=== PATIENT | female | born 1980 | race Caucasian/White ===

== ENCOUNTER 2017-01-11 14:07 | Emergency (ER) | payer OTHER ==
[2017-01-11 14:19] VITALS: BP 119/63
--- NOTE | 2017-01-11 14:50 | UC ---
Abdominal Pain Female HPI - HPI Summary HPI Summary: 2 DAYS OF N/V AND WATERY DIARRHEA. SYMPTOMS WORSE WHEN SHE TRIES TO TAKE PO. IS VERY FATIGUED AND HAS A HOFFMAN. NO FEVER. HAS A H/O IBS - UNABLE TO TOLERATE DAIRY BUT HAS NOT EATEN ANY TRIGGER FOODS. NO RECENT ANTIBIOTICS, TRAVEL OR NEW EXPOSURES. - History of Current Complaint Chief Complaint: UCAbdominalPain Stated Complaint: ABDOMINAL COMPLAINT Time Seen by Provider: 01/11/17 14:34 Hx Obtained From: Patient Hx Last Menstrual Period: 12/16/16 Onset/Duration: Gradual Onset, Lasting Days, Still Present Severity Initially: Moderate Severity Currently: Moderate Pain Intensity: 9 Pain Scale Used: 0-10 Numeric Location: Diffuse Radiates: No Character: Cramping Aggravating Factor(s): Food Alleviating Factor(s): Nothing Associated Signs and Symptoms: Positive: Decreased Appetite, Nausea, Vomiting, Diarrhea. Negative: Fever, Constipation, Blood in Stool, Urinary Symptoms, Vaginal Discharge Allergies/Adverse Reactions: Allergies Allergy/AdvReac Type Severity Reaction Status Date / Time Codeine Allergy Difficulty Verified 01/11/17 14:19 Breathing Morphine Allergy Difficulty Verified 01/11/17 14:19 Breathing Penicillin G Allergy Rash Verified 01/11/17 14:19 PMH/Surg Hx/FS Hx/Imm Hx GI/ History: Gastroesophageal Reflux Other GI/ History: IBS - Surgical History Surgical History: Yes Surgery Procedure, Year, and Place: josiah- 02/2000. tubal ligation 07/2003. teeth removed - Family History Known Family History: Positive: Hypertension - Social History Alcohol Use: Rare Substance Use Type: None Smoking Status (MU): Heavy Every Day Tobacco Smoker Amount Used/How Often: 1/2 ppd Review of Systems Constitutional: Fatigue Respiratory: Negative Cardiovascular: Negative Gastrointestinal: Abdominal Pain, Vomiting, Diarrhea, Nausea Genitourinary: Negative All Other Systems Reviewed And Are Negative: Yes Physical Exam Triage Information Reviewed: Yes Appearance: Well-Nourished, Pain Distress - MILD, Obese Vital Signs: Initial Vital Signs Temp 99.0 F 01/11/17 14:16 Pulse 81 01/11/17 14:16 Resp 20 01/11/17 14:16 BP 119/63 01/11/17 14:16 Pulse Ox 99 01/11/17 14:16 Vital Signs Reviewed: Yes Eyes: Positive: Conjunctiva Clear ENT: Positive: Hearing grossly normal Neck: Positive: Supple, Nontender, No Lymphadenopathy Respiratory Exam: Normal Cardiovascular Exam: Normal Abdomen Description: Positive: Soft, Other: - MILD DIFFUSE TENDERNESS. Negative : CVA Tenderness (R), CVA Tenderness (L), Distended, Guarding Bowel Sounds: Positive: Present Musculoskeletal: Positive: No Edema Neurological: Positive: Alert Psychological: Positive: Age Appropriate Behavior Skin: Negative: rashes Abd Pain Female Course/Dx - Course Course Of Treatment: PT DECLINES IV HYDRATION. GIVE ZOFRAN, PO HYDRATE, REST. NOTE FOR WORK. STOOL SPECIMEN IF NOT IMPROVING . F/U PCP IF NEEDED. - Differential Dx/Diagnosis Provider Diagnoses: ACUTE GASTROENTERITIS Discharge - Discharge Plan Condition: Stable Disposition: HOME Prescriptions: Ondansetron ODT TAB* [Zofran Odt TAB*] 4 mg PO Q6H PRN #20 tab.odt PRN Reason: Nausea/Vomiting Patient Education Materials: Gastroenteritis (ED) Forms: *Work Release Referrals: Kurt Davila MD [Primary Care Provider] - If Needed Additional Instructions: ENSURE ADEQUATE HYDRATION. CLEAR LIQUIDS, BLAND DIET. AVOID CAFFEINE, DAIRY, GREASY, SPICY FOODS. ONCE YOU ARE TOLERATING CLEAR LIQUIDS YOU CAN ADVANCE TO SIMPLE, BLAND FOODS. IF YOUR SYMPTOMS DO NOT START TO IMPROVE OVER THE NEXT 3-5 DAYS BRING A STOOL SPECIMEN IN FOR TESTING.
[2017-01-11] MEDS ORDERED: Ondansetron ODT TAB* 4 MG PO ONE (14:54)
== END 2017-01-11 15:10 | disposition home or self-care (01) ==
LOC: UCEAST 14:07
DX: K52.9 Noninfective gastroenteritis and colitis, unspecified (principal); K21.9 Gastro-esophageal reflux disease without esophagitis; K58.9 Irritable bowel syndrome, unspecified
CPT/HCPCS: 99212; A9270-GY; G0463

== ENCOUNTER 2017-04-21 16:45 | Emergency (ER) | payer OTHER ==
[2017-04-21 16:54] VITALS: BP 156/86
--- NOTE | 2017-04-21 17:03 | UC ---
Abdominal Pain Female HPI - HPI Summary HPI Summary: 37 YEAR OLD FEMALE PRESENTS WITH SEVERE VAGINAL BLEEDING. I WILL SEND HER TO THE ER FOR A TRANSVAGINAL US. - History of Current Complaint Chief Complaint: UCGeneralIllness Stated Complaint: CRAMPS Time Seen by Provider: 04/21/17 16:58 Hx Obtained From: Patient Hx Last Menstrual Period: 04/17/17 Onset/Duration: Sudden Onset Severity Initially: Moderate Severity Currently: Moderate Pain Scale Used: 0-10 Numeric - 5 Allergies/Adverse Reactions: Allergies Allergy/AdvReac Type Severity Reaction Status Date / Time Codeine Allergy Difficulty Verified 04/21/17 16:50 Breathing Morphine Allergy Difficulty Verified 04/21/17 16:50 Breathing Penicillin G Allergy Rash Verified 04/21/17 16:50 PMH/Surg Hx/FS Hx/Imm Hx Previously Healthy: Yes - Surgical History Surgical History: Yes Surgery Procedure, Year, and Place: josiah- 02/2000. tubal ligation 07/2003. teeth removed - Family History Known Family History: Positive: Hypertension - Social History Alcohol Use: Rare Substance Use Type: None Smoking Status (MU): Heavy Every Day Tobacco Smoker Amount Used/How Often: 1/2 ppd Review of Systems Constitutional: Negative Skin: Negative Eyes: Negative ENT: Negative Respiratory: Negative Cardiovascular: Negative Gastrointestinal: Negative Genitourinary: Abnormal Bleeding Motor: Negative Neurovascular: Negative Musculoskeletal: Negative Neurological: Negative Psychological: Negative All Other Systems Reviewed And Are Negative: Yes Physical Exam Triage Information Reviewed: Yes Vital Signs: Initial Vital Signs Temp 36.6 C 04/21/17 16:51 Pulse 80 04/21/17 16:51 Resp 20 04/21/17 16:51 BP 156/86 04/21/17 16:51 Pulse Ox 100 04/21/17 16:51 Eye Exam: Normal ENT Exam: Normal Dental Exam: Normal Neck exam: Normal Neck: Positive: 1 Respiratory Exam: Normal Cardiovascular Exam: Normal Abdominal Exam: Normal Musculoskeletal Exam: Normal Neurological Exam: Normal Psychological Exam: Normal Skin Exam: Normal Abd Pain Female Course/Dx - Differential Dx/Diagnosis Provider Diagnoses: VAGINAL BLEEDING Discharge - Discharge Plan Condition: Stable Disposition: HOME Patient Education Materials: Dysfunctional Uterine Bleeding (ED) Referrals: Kurt Davila MD [Primary Care Provider] - Additional Instructions: PATIENT SUGGESTED TO GO TO ER FOR SEVERE VAGINAL BLEEDING.
== END 2017-04-21 17:20 | disposition home or self-care (01) ==
LOC: UCEAST 16:45
DX: N93.9 Abnormal uterine and vaginal bleeding, unspecified (principal); Z88.5 Allergy status to narcotic agent; Z88.0 Allergy status to penicillin; F17.210 Nicotine dependence, cigarettes, uncomplicated
CPT/HCPCS: 99211; G0463

== ENCOUNTER 2017-04-21 18:50 | Emergency (ER) | payer OTHER ==
[2017-04-21] MEDS ORDERED: NS 0.9% 1000 ML* 1,000 ML IV ONE (19:38)
[2017-04-21] MEDS ORDERED: Ondansetron INJ* 2 MG/ML VIAL IV ONE (19:38)
[2017-04-21] MEDS ORDERED: Ketorolac INJ* 30 MG/ML 1 ML VIAL IV ONE (19:38)
[2017-04-21 20:31] LABS: Urine Bacteria 1+ (Absent); Urine Bilirubin Negative (Negative); Urine Glucose Negative (Negative); Urine Nitrite Negative (Negative)
[2017-04-21] MEDS ORDERED: Ibuprofen TAB* 800 MG PO ONE (21:47)
[2017-04-21] MEDS ORDERED: Acetaminophen TAB* 325 MG PO ONE (21:47)
[2017-04-21] MEDS ORDERED: Nitrofurantoin Macrocrystals* 100 MG CAP PO ONE (21:48)
--- NOTE | 2017-04-21 21:54 | ED ---
Lilia Panda Rebecca, scribed for Jerrica Ko MD on 04/21/17 at 2142 . Abdominal Pain/Female - HPI Summary HPI Summary: Pt is a 37 y/o F referred from [facility] who presents to ED c/o R-sided abdominal pain. Pain began 4 days ago and has been intermittent since onset. Pain is currently moderate, ranked 5/10 and characterized as cramping, discrete to the R side of the abdomen without any radiation. Has been taking 800 mg Ibuprofen which has resolved sx until today, at 1415 when she took 600 mg Ibuprofen and it did not change the pain. Sx aggravated by nothing, alleviated by Ibuprofen until today. Additionally c/o urinary frequency suspected to be secondary to caffeine. Denies vomiting, dysuria and back pain. No PMHx UTIs. PMHx IBS and PSHx cholecystectomy. - History of Current Complaint Chief Complaint: EDAbdPain Stated Complaint: RT SIDE ABD PAIN Time Seen by Provider: 04/21/17 21:27 Hx Obtained From: Patient Hx Last Menstrual Period: 04/17/17 Onset/Duration: Lasting Days - 4 days, Still Present Timing: Intermittent Episode Lasting Severity Currently: Moderate Pain Intensity: 5 Pain Scale Used: 0-10 Numeric Location: Other - R-sided Radiates: No Character: Cramping Aggravating Factor(s): Nothing Alleviating Factor(s): Medications - Ibuprofen Associated Signs and Symptoms: Positive: Urinary Symptoms - Urinary frequency. Negative: Back Pain, Vomiting Allergies/Adverse Reactions: Allergies Allergy/AdvReac Type Severity Reaction Status Date / Time Codeine Allergy Difficulty Verified 04/21/17 16:50 Breathing Morphine Allergy Difficulty Verified 04/21/17 16:50 Breathing Penicillin G Allergy Rash Verified 04/21/17 16:50 PMH/Surg Hx/FS Hx/Imm Hx Endocrine/Hematology History: Denies: Hx Diabetes, Hx Thyroid Disease Cardiovascular History: Denies: Hx Hypertension Respiratory History: Reports: Hx Sleep Apnea - evaluation for 10/2013 Denies: Hx Asthma, Hx Chronic Obstructive Pulmonary Disease (COPD) GI History: Reports: Hx Gastroesophageal Reflux Disease - meds, Hx Irritable Bowel Denies: Hx Ulcer Musculoskeletal History: Reports: Hx Back Problems - low back pain, Hx Orthopedic Injury - (right) shoulder pain w/lifting arm, Other Musculoskeletal History - (right) lower leg w/rash & itching - Surgical History Surgery Procedure, Year, and Place: josiah- 02/2000. tubal ligation 07/2003. teeth removed Infectious Disease History: No Infectious Disease History: Denies: Hx Clostridium Difficile, Hx Hepatitis, Hx Human Immunodeficiency Virus (HIV), Hx of Known/Suspected MRSA, Hx Shingles, Hx Tuberculosis, Hx Known/ Suspected VRE, Hx Known/Suspected VRSA, History Other Infectious Disease, Traveled Outside the [place] in Last 30 Days - Family History Known Family History: Positive: Hypertension, Diabetes - father - Social History Alcohol Use: Rare Substance Use Type: Reports: None Smoking Status (MU): Heavy Every Day Tobacco Smoker Amount Used/How Often: 1/2 ppd Review of Systems Positive: Abdominal Pain - R-sided abdominal pain. Negative: Vomiting Positive: frequency - Urinary frequency. Negative: dysuria Positive: Other - NEGATIVE: back pain All Other Systems Reviewed And Are Negative: Yes Physical Exam - Summary Physical Exam Summary: General: Well appearing, no pain distress Skin: Warm, Skin Color Reflects Adequate Perfusion, Dry Eyes: EOMI, ROSEMARIE ENT: Pharynx normal, TMs normal Neck: Supple, nontender Respiratory: CTA, breath sounds present, no rhonchi, no wheezes, no rales Cardiovascular: RRR, no murmur, no rub, no gallop Abdomen: Soft, nontender, Non-distended, no guarding, no rebound Bowel: Present Musculoskeletal: MARTINA, No edema, No costovertebral angle tenderness Neuro: Sensory/motor intact, A&Ox3, CN intact 2-12 Psych: Affect/mood appropriate Triage Information Reviewed: Yes Vital Signs On Initial Exam: Initial Vitals Temp Pulse Resp BP Pulse Ox 97.8 F 69 14 106/48 97 04/21/17 19:25 04/21/17 19:25 04/21/17 19:25 04/21/17 19:25 04/21/17 19:25 Vital Signs Reviewed: Yes Diagnostics - Vital Signs Vital Signs Temp Pulse Resp BP Pulse Ox 04/21/17 19:25 97.8 F 69 14 106/48 97 - Laboratory Lab Results: Lab Results 04/21/17 Range/Units 20:10 Urine Color Tresa Urine Appearance Cloudy Urine pH 5.0 (5-9) Ur Specific [place] 1.018 (1.010-1.030) Urine Protein 2+(100 mg/dl) H (Negative) Urine Ketones Negative (Negative) Urine Blood 3+ H (Negative) Urine Nitrate Negative (Negative) Urine Bilirubin Negative (Negative) Urine Urobilinogen Negative (Negative) Ur Leukocyte Esterase 1+ H (Negative) Urine WBC (Auto) 2+(11-20/hpf) H (Absent) Urine RBC (Auto) 3+(>10/hpf) H (Absent) Ur Squamous Epith Cells Present H (Absent) Urine Bacteria 1+ H (Absent) Urine Glucose Negative (Negative) Lab Statement: Any lab studies that have been ordered have been reviewed, and results considered in the medical decision making process. Abdominal Pain Fem Course/Dx - Course Course Of Treatment: very pleasant female who presents with rlq pain but no tenderness what so ever on exam and no back or cva tenderness with normal vital signs. Pt was sent from urgent care for evaluation, her urine shows a uti and she will be treated as such. She has never had a uti before but has noticed increased frequency. Pt was offered labs and IV but is very needle phobic and would like to avoid if possible, we discussed that this was totally ok but if her symptoms worsened she needed to see her physician for followup or return - Diagnoses Provider Diagnoses: UTI (urinary tract infection) Discharge - Discharge Plan Condition: Stable Disposition: HOME Prescriptions: Nitrofurantoin Monohyd Macro [Macrobid] 100 mg PO BID #14 cap Patient Education Materials: Urinary Tract Infection in Women (ED) Forms: *Work Release Referrals: Kurt Davila MD [Primary Care Provider] - 3 Days The documentation as recorded by the Lilia underwood Rebecca accurately reflects the service I personally performed and the decisions made by me, Jerrica Ko MD.
[2017-04-21 22:57] VITALS: BP 149/84
== END 2017-04-21 22:35 | disposition home or self-care (01) ==
LOC: ED 18:50
DX: N39.0 Urinary tract infection, site not specified (principal); R10.9 Unspecified abdominal pain; F17.210 Nicotine dependence, cigarettes, uncomplicated
CPT/HCPCS: 81003; 81015; 87086; 96374; 96375; 99283; A9270-GY; J1885; J2405

== ENCOUNTER 2017-07-04 17:24 | Emergency (ER) | payer OTHER ==
[2017-07-04 17:45] VITALS: BP 141/73
--- NOTE | 2017-07-04 19:11 | UC ---
Nausea/Vomiting/Diarrhea HPI - HPI Summary HPI Summary: Pt presents with 4 day history of vomiting, nausea, and abdominal cramping. She tells me that 4 days ago she started with abdominal cramping, nausea, and vomited 3 or 4 times that day. Soon after she developed loose stools and diarrhea. She was able to drink, but did not want to eat. Since that time she has vomited 2-4 times daily and still has diarrhea 3-4 times a day. Yesterday she only vomited once, but was still afraid to try to eat. Today she has not vomited at all and her diarrhea is slowing. She does have some generalized abdominal cramping, but no specific pain. She is no longer nauseous. She denies fever, chills, SOB, chest pain, cough, headache, dizziness, numbness, or tingling. She went to work today without difficulties and says she only came in today to get a doctor's note to return to work at her other job for tomorrow. - History of Current Complaint Chief Complaint: UCAbdominalPain Stated Complaint: NAUSEA, ABD CRAMP, DIARRHEA Time Seen by Provider: 07/04/17 19:11 Hx Obtained From: Patient Hx Last Menstrual Period: 04/17/17 Onset/Duration: Gradual Onset Severity Initially: Moderate Severity Currently: Mild Pain Intensity: 3 Pain Scale Used: 0-10 Numeric Location: Diffuse - Allergies/Home Medications Allergies/Adverse Reactions: Allergies Allergy/AdvReac Type Severity Reaction Status Date / Time Codeine Allergy Difficulty Verified 04/21/17 16:50 Breathing Morphine Allergy Difficulty Verified 04/21/17 16:50 Breathing Penicillin G Allergy Rash Verified 04/21/17 16:50 Home Medications: Home Medications Escitalopram Oxalate [Lexapro 10 mg] 10 mg PO DAILY 07/04/17 [History Confirmed 07/04/17] PMH/Surg Hx/FS Hx/Imm Hx GI/ History: Gastroesophageal Reflux - Surgical History Surgical History: Yes Surgery Procedure, Year, and Place: josiah- 02/2000. tubal ligation 07/2003. teeth removed - Family History Known Family History: Positive: Hypertension, Diabetes - father - Social History Occupation: Employed Full-time Lives: With Family Alcohol Use: Rare Substance Use Type: None Smoking Status (MU): Heavy Every Day Tobacco Smoker Type: Cigarettes Amount Used/How Often: 1/2 ppd Review of Systems Constitutional: Negative Skin: Negative Respiratory: Negative Cardiovascular: Negative Gastrointestinal: Vomiting, Diarrhea, Nausea, Other - Abdominal cramping Genitourinary: Negative Neurovascular: Negative Musculoskeletal: Negative Neurological: Negative Psychological: Negative All Other Systems Reviewed And Are Negative: Yes Physical Exam Triage Information Reviewed: Yes Appearance: Well-Appearing, Well-Nourished, Obese Vital Signs: Initial Vital Signs Temp 98.1 F 07/04/17 17:39 Pulse 95 07/04/17 17:39 Resp 18 07/04/17 17:39 BP 141/73 07/04/17 17:39 Pulse Ox 99 07/04/17 17:39 Vital Signs Reviewed: Yes ENT: Positive: Normal ENT inspection, Hearing grossly normal, Pharynx normal, TMs normal Neck: Positive: Supple, Nontender, No Lymphadenopathy Respiratory: Positive: Chest non-tender, Lungs clear, Normal breath sounds, No respiratory distress, No accessory muscle use Cardiovascular: Positive: RRR, No Murmur, Pulses Normal Abdomen Description: Positive: Nontender, No Organomegaly, Soft. Negative: CVA Tenderness (R), CVA Tenderness (L), Distended, Guarding, McBurney's Point Tenderness, Peritoneal Signs Bowel Sounds: Positive: Present Neurological: Positive: Alert. Negative: Fatigued Psychological: Positive: Age Appropriate Behavior Skin: Negative: rashes, significant lesion(s) Naus/Vom/Diarrhea Course/Dx - Course Course Of Treatment: Suspect viral gastroenteritis. Pt appears to be recovering quite well and is able to tolerate crackers, toast, and liquids. She is no longer vomiting or having nausea. Advised to slowely advance diet as tolerated. 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 Advised that if her symptoms return or if she develops a fever, to go to the ED. - Differential Dx/Diagnosis Differential Diagnoses - Female: Appendicitis, Bowel Obstruction, Diverticulitis , Irritable Bowel Syndrome, Gastroenteritis (Viral) Provider Diagnoses: Viral gastroenteritis Condition At Discharge: Stable Discharge - Discharge Plan Condition: Stable Disposition: HOME Patient Education Materials: Gastroenteritis (ED) Forms: *Work Release Referrals: Drew Patten DO [Primary Care Provider] - Additional Instructions: If you develop a fever, SOB, chest pain, new or worsening symptoms - please go to the ED. Your blood pressure was high at todays visit. Please see your primary provider within 4 weeks for recheck and re-evaluation. 1) Slowly advance diet as tolerated with bananas, rice, applesauce, and toast.
== END 2017-07-04 19:30 | disposition home or self-care (01) ==
LOC: UCEAST 17:24
DX: A08.4 Viral intestinal infection, unspecified (principal); F17.210 Nicotine dependence, cigarettes, uncomplicated; Z88.5 Allergy status to narcotic agent; Z88.0 Allergy status to penicillin
CPT/HCPCS: 99211; G0463

== ENCOUNTER 2017-11-16 23:20 | Emergency (ER) | payer OTHER ==
[2017-11-16 23:50] LABS: Urine Appearance Cloudy; Urine Blood 3+ (Negative); Urine Ketones Negative (Negative); Urine Protein 2+(100 mg/dL) (Negative); Urine Specific Gravity 1.028 (1.010-1.030); Urine Urobilinogen Negative (Negative)
[2017-11-16 23:55] LABS: Urine Color Red
[2017-11-17] MEDS ORDERED: Ibuprofen TAB* 600 MG PO ONE (00:45)
[2017-11-17] MEDS ORDERED: Nitrofurantoin Macrocrystals* 100 MG CAP PO ONE (02:00)
[2017-11-17] MEDS ORDERED: oxyCODONE/Acetamin 5/325 MG* TAB ONE (02:06)
[2017-11-17 02:30] VITALS: BP 121/56
--- NOTE | 2017-11-17 03:56 | ED ---
Leonard Panda Gabriel, scribed for Shimon Erickson MD on 11/17/17 at 0048 . GI/ HPI - HPI Summary HPI Summary: This patient is a 37 year old F presenting to [facility] accompanied by her partner with a chief complaint of a suspected UTI that began yesterday. The patient rates the pain 5/10 in severity. Patient reports right sided flank pain. Patient denies dysuria, back pain, and increased frequency. She is currently menstruating; she is not because her tubes are tied. She states these symptoms feel similar to her last UTI. - History of Current Complaint Chief Complaint: EDUrogenitalProblems Time Seen by Provider: 11/17/17 00:37 Stated Complaint: UROGENITAL PROBLEMS Hx Obtained From: Patient Hx Last Menstrual Period: 04/17/17 Onset/Duration: Still Present Timing: Constant Severity: Moderate Current Severity: Moderate Pain Intensity: 5 Location of Pain: Flank - r Associated Signs and Symptoms: Positive: Flank Pain. Negative: Back Pain - Allergy/Home Medications Allergies/Adverse Reactions: Allergies Allergy/AdvReac Type Severity Reaction Status Date / Time codeine Allergy Difficulty Verified 11/16/17 23:26 Breathing morphine Allergy Difficulty Verified 11/16/17 23:26 Breathing Penicillins Allergy Rash Verified 11/16/17 23:26 Home Medications: Home Medications Baclofen [Baclofen] 10 mg PO TID PRN 11/17/17 [History Confirmed 11/17/17] Hyoscyamine Sulfate 0.125 tab PO Q4H PRN 11/17/17 [History Confirmed 11/17/17] Losartan/Hydrochlorothiazide [Losartan Potassium/Hydroc 50-12.5 mg] 1 tab PO QAM 11/17/17 [History Confirmed 11/17/17] PMH/Surg Hx/FS Hx/Imm Hx Endocrine/Hematology History: Denies: Hx Diabetes, Hx Thyroid Disease Cardiovascular History: Denies: Hx Hypertension Respiratory History: Reports: Hx Sleep Apnea - evaluation for 10/2013 Denies: Hx Asthma, Hx Chronic Obstructive Pulmonary Disease (COPD) GI History: Reports: Hx Gastroesophageal Reflux Disease - meds, Hx Irritable Bowel Denies: Hx Ulcer Musculoskeletal History: Reports: Hx Back Problems - low back pain, Hx Orthopedic Injury - (right) shoulder pain w/lifting arm, Other Musculoskeletal History - (right) lower leg w/rash & itching - Surgical History Surgery Procedure, Year, and Place: josiah- 02/2000. tubal ligation 07/2003. teeth removed Infectious Disease History: No Infectious Disease History: Denies: Hx Clostridium Difficile, Hx Hepatitis, Hx Human Immunodeficiency Virus (HIV), Hx of Known/Suspected MRSA, Hx Shingles, Hx Tuberculosis, Hx Known/ Suspected VRE, Hx Known/Suspected VRSA, History Other Infectious Disease, Traveled Outside the [place] in Last 30 Days - Family History Known Family History: Positive: Hypertension, Diabetes - father - Social History Lives: With Family Alcohol Use: Rare Substance Use Type: Reports: None Smoking Status (MU): Heavy Every Day Tobacco Smoker Type: Cigarettes Amount Used/How Often: 1/2 ppd Review of Systems Positive: flank pain. Negative: dysuria, frequency Musculoskeletal: Negative - back pain All Other Systems Reviewed And Are Negative: Yes Physical Exam - Summary Physical Exam Summary: Appearance: Well appearing, no pain distress Skin: warm, dry, reflects adequate perfusion Head/face: normal Eyes: EOMI, ROSEMARIE ENT: normal Neck: supple, non-tender Respiratory: CTA, breath sounds present Cardiovascular: RRR, pulses symmetrical Abdomen: non-tender, soft Bowel Sounds: present Musculoskeletal: normal, strength/ROM intact Neuro: normal, sensory motor intact, A&Ox3 Triage Information Reviewed: Yes Vital Signs On Initial Exam: Initial Vitals Temp Pulse Resp BP Pulse Ox 97.9 F 81 18 137/59 99 11/16/17 23:22 11/16/17 23:22 11/16/17 23:22 11/16/17 23:22 11/16/17 23:22 Vital Signs Reviewed: Yes Diagnostics - Vital Signs Vital Signs Temp Pulse Resp BP Pulse Ox 11/16/17 23:22 97.9 F 81 18 137/59 99 - Laboratory Lab Results: Lab Results 11/16/17 Range/Units 23:27 Urine Color Red A Urine Appearance Cloudy Urine pH 5.0 (5-9) Ur Specific [place] 1.028 (1.010-1.030) Urine Protein 2+(100 mg/dl) A (Negative) Urine Ketones Negative (Negative) Urine Blood 3+ A (Negative) Urine Nitrate Negative (Negative) Urine Bilirubin Negative (Negative) Urine Urobilinogen Negative (Negative) Ur Leukocyte Esterase Trace A (Negative) Urine WBC (Auto) 2+(11-20/hpf) A (Absent) Urine RBC (Auto) 3+(>10/hpf) A (Absent) Ur Squamous Epith Cells Present A (Absent) Urine Bacteria Absent (Absent) Urine Glucose Negative (Negative) Lab Statement: Any lab studies that have been ordered have been reviewed, and results considered in the medical decision making process. - CT CT ABD/Pelvis CT Interpretation Completed By: Radiologist - no definite evidence of acute pathology ED physician has reviewed this radiology report. Re-Evaluation - Re-Evaluation First Eval Change: Improved GIGU Course/Dx - Course Course Of Treatment: Patient with small amount of blood in the urine and only slight wbc's. Negative for nitrites and only trace leukocyte esterase. She feels as though she has urinary tract infection. A CT scan was performed to rule out stone. None was found. No adnexal pathology seen. Comfortable. Started antibiotic here and will have her continue outpatient and follow up with primary care physician. - Diagnoses Differential Diagnoses - Female: Appendicitis, Ovarian Cyst, Renal Colic, Urinary Tract Infection Provider Diagnoses: UTI (urinary tract infection), Pelvic pain Discharge - Sign-Out/Discharge Documenting (check all that apply): Discharge/Admit/Transfer - Discharge Plan Condition: Good Disposition: HOME Prescriptions: Nitrofurantoin Macrocrystals* [Macrodantin 100 mg*] 100 mg PO BID #14 cap Phenazopyridine 200 mg (NF) [Pyridium 200 MG tab *] 200 mg PO TID #9 tab Patient Education Materials: Urinary Tract Infection in Women (ED), Pelvic Pain in Women (ED) Referrals: Jackie Marcos PA [Primary Care Provider] - Additional Instructions: Call first thing in the morning for an appointment. Return with uncontrolled pain, fever, vomiting, worse or other concerns. Drink plenty of fluids. Cranberry juice may help. - Billing Disposition and Condition Condition: GOOD Disposition: HOME The documentation as recorded by the Leonard underwood Gabriel accurately reflects the service I personally performed and the decisions made by me, Shimon Erickson MD.
--- NOTE | 2017-11-17 08:41 | RAD ---
INDICATION: Right flank pain. COMPARISON: Comparison is made with a prior CT of the abdomen and pelvis from [facility] . TECHNIQUE: A CT scan of the abdomen and pelvis was performed without intravenous or oral contrast. Contiguous axial sections were obtained from the lung bases through the symphysis pubis. Images were reconstructed in the coronal and sagittal planes. FINDINGS: The lung bases are clear. No pleural effusion is present. The liver and spleen are mildly enlarged without significant focal abnormality on this noncontrast study. The patient is status post cholecystectomy. The pancreas appears to be within normal limits. The adrenal glands and kidneys are normal in size. No renal calculi or hydronephrosis is seen. No ureteral or bladder calculi are seen. The aorta is normal in caliber without significant calcific plaque. No significant enlarged retroperitoneal lymph nodes are seen. There is slight increased density within the stomach and food debris present. The stomach, small and large bowel appear nondistended. The appendix is within normal limits. There are scattered diverticuli within the colon. There is no evidence for diverticulitis or colitis. There is diastases of the rectus abdominis muscles and a small periumbilical hernia containing fat. The uterus is anteverted and upper limits of normal in size. No free intraperitoneal air or fluid is seen. No significant focal osseous abnormality is seen. IMPRESSION: 1. NO EVIDENCE FOR ACUTE FINDING OR CAUSE FOR THE PATIENT'S ABDOMINAL PAIN IS SEEN. 2. MILD HEPATOSPLENOMEGALY. 3. STATUS POST CHOLECYSTECTOMY.
== END 2017-11-17 02:28 | disposition home or self-care (01) ==
LOC: ED 23:20
DX: N39.0 Urinary tract infection, site not specified (principal); R10.2 Pelvic and perineal pain; Z87.440 Personal history of urinary (tract) infections; R16.2 Hepatomegaly with splenomegaly, not elsewhere classified; K21.9 Gastro-esophageal reflux disease without esophagitis; Z90.49 Acquired absence of other specified parts of digestive tract; Z88.5 Allergy status to narcotic agent; Z88.0 Allergy status to penicillin; F17.210 Nicotine dependence, cigarettes, uncomplicated
CPT/HCPCS: 74176; 81003; 81015; 87086; 99282; A9270-GY

== ENCOUNTER 2017-12-18 21:58 | Emergency (ER) | payer OTHER ==
[2017-12-18 22:17] VITALS: BP 138/78
--- NOTE | 2017-12-18 22:24 | ED ---
Skin Complaint - HPI Summary HPI Summary: CC; BEE STING LEFT FACE NEAR LEFT EYE HPI; AT 1830 THIS EVENING, A BEE FLEW INTO LEFT EYE. SHE WAS BRUSHING THE BEE AWAY, IT STUNG HER JUST BELOW THE LEFT EYE ON HER SKIN. NO VISION CHANGES, NO EYE PAIN. THERE HAS BEEN LOCALIZED SWELLING BELOW THE LEFT EYE WHICH HAS INCREASED SINCE THE STING. NO DIFFICULT SWALLOWING OR BREATHING. NO PRIOR HX OF ALLERGIC REACTION TO BEE STINGS. - History of Current Complaint Chief Complaint: UCEye Time Seen by Provider: 12/18/17 22:10 Stated Complaint: EYE PAIN Hx Obtained From: Patient Hx Last Menstrual Period: 04/17/17 Onset/Duration: Started Hours Ago Skin Exposure Onset/Duration: Hours Ago Timing: Constant Onset Severity: Mild Current Severity: Mild Pain Intensity: 6 Pain Scale Used: 0-10 Numeric Skin Location: Face Character: Swelling, Pain Aggravating Symptom(s): Nothing Alleviating Symptom(s): Nothing - Allergy/Home Medications Allergies/Adverse Reactions: Allergies Allergy/AdvReac Type Severity Reaction Status Date / Time codeine Allergy Difficulty Verified 12/18/17 22:17 Breathing morphine Allergy Difficulty Verified 12/18/17 22:17 Breathing Penicillins Allergy Rash Verified 12/18/17 22:17 PMH/Surg Hx/FS Hx/Imm Hx Previously Healthy: Yes Endocrine/Hematology History: Denies: Hx Diabetes, Hx Thyroid Disease Cardiovascular History: Denies: Hx Hypertension Respiratory History: Reports: Hx Sleep Apnea - evaluation for 10/2013 Denies: Hx Asthma, Hx Chronic Obstructive Pulmonary Disease (COPD) GI History: Reports: Hx Gastroesophageal Reflux Disease - meds, Hx Irritable Bowel Denies: Hx Ulcer Musculoskeletal History: Reports: Hx Back Problems - low back pain, Hx Orthopedic Injury - (right) shoulder pain w/lifting arm, Other Musculoskeletal History - (right) lower leg w/rash & itching - Surgical History Surgery Procedure, Year, and Place: josiah- 02/2000. tubal ligation 07/2003. teeth removed Infectious Disease History: No Infectious Disease History: Denies: Hx Clostridium Difficile, Hx Hepatitis, Hx Human Immunodeficiency Virus (HIV), Hx of Known/Suspected MRSA, Hx Shingles, Hx Tuberculosis, Hx Known/ Suspected VRE, Hx Known/Suspected VRSA, History Other Infectious Disease, Traveled Outside the [place] in Last 30 Days - Family History Known Family History: Positive: Hypertension, Diabetes - father - Social History Alcohol Use: Rare Substance Use Type: Reports: None Smoking Status (MU): Heavy Every Day Tobacco Smoker Type: Cigarettes Amount Used/How Often: 1/2 ppd Review of Systems Constitutional: Negative Eyes: Negative Negative: Photophobia, Blurred Vision, Drainage ENT: Negative Cardiovascular: Negative Respiratory: Negative Gastrointestinal: Negative Genitourinary: Negative Musculoskeletal: Negative Skin: Other - SEE HPI Neurological: Negative Psychological: Normal All Other Systems Reviewed And Are Negative: Yes Physical Exam Triage Information Reviewed: Yes Vital Signs On Initial Exam: Initial Vitals Temp Pulse Resp BP Pulse Ox 98.3 F 87 15 138/78 98 12/18/17 22:06 12/18/17 22:06 12/18/17 22:06 12/18/17 22:06 12/18/17 22:06 Vital Signs Reviewed: Yes Appearance: Positive: Well-Appearing, No Pain Distress, Well-Nourished Skin: Positive: Warm Head/Face: Positive: Other - MILD SWELLING OF SKIN BELOW LEFT EYE. NO STINGER SEEN. Eyes: Positive: Normal, EOMI, ROSEMARIE, Conjunctiva Clear ENT: Positive: Normal ENT inspection, Pharynx normal, Uvula midline. Negative: Nasal congestion, Nasal drainage, Muffled voice, Hoarse voice Neck: Positive: Supple Respiratory/Lung Sounds: Positive: Clear to Auscultation Cardiovascular: Positive: RRR Musculoskeletal: Positive: Normal Neurological: Positive: Normal Psychiatric: Positive: Normal AVPU Assessment: Alert Diagnostics - Vital Signs Vital Signs Temp Pulse Resp BP Pulse Ox 12/18/17 22:06 98.3 F 87 15 138/78 98 - Laboratory Lab Statement: Any lab studies that have been ordered have been reviewed, and results considered in the medical decision making process. Course/Dx - Diagnoses Provider Diagnoses: Insect sting Discharge - Sign-Out/Discharge Documenting (check all that apply): Discharge/Admit/Transfer - Discharge Plan Condition: Stable Disposition: HOME Patient Education Materials: Insect Bite or Sting (ED) Referrals: Jackie Marcos PA [Primary Care Provider] - Additional Instructions: FOLLOW UP WITH YOUR DOCTOR IF NOT COMPLETELY IMPROVED. GET RECHECKED FOR ANY WORSENING OF YOUR CONDITION OR QUESTIONS OR CONCERNS. - Billing Disposition and Condition Condition: STABLE Disposition: HOME
== END 2017-12-18 22:20 | disposition home or self-care (01) ==
LOC: UCEAST 21:58
DX: T63.441A Toxic effect of venom of bees, accidental (unintentional), initial encounter (principal); R22.0 Localized swelling, mass and lump, head; Y92.9 Unspecified place or not applicable; G47.30 Sleep apnea, unspecified; K21.9 Gastro-esophageal reflux disease without esophagitis; Z90.49 Acquired absence of other specified parts of digestive tract; Z88.5 Allergy status to narcotic agent; Z88.0 Allergy status to penicillin; F17.210 Nicotine dependence, cigarettes, uncomplicated
CPT/HCPCS: 99211; G0463

== ENCOUNTER 2018-02-18 21:29 | Emergency (ER) | payer OTHER ==
[2018-02-18 21:43] VITALS: BP 136/75
[2018-02-18] MEDS ORDERED: Ondansetron ODT TAB* 4 MG PO ONE (21:49)
--- NOTE | 2018-02-18 21:51 | UC ---
Abdominal Pain Female HPI - HPI Summary HPI Summary: 37 yo female presents with diffuse abdominal pain that began 3 days ago. New onset of vomiting and diarrhea over the last 24-48hours. Not tolerating anything po. She tells me that she has a hx of IBS, but this feels different and she also takes medication for this that she cannot "keep down" and when she can keep it down, it doesn't help. Denies fever, chills, SOB, chest pain. - History of Current Complaint Chief Complaint: UCGI Stated Complaint: STOMACH CRAMPS,VOMITING,DIARRHEA Time Seen by Provider: 02/18/18 21:42 Hx Obtained From: Patient Hx Last Menstrual Period: 04/17/17 Onset/Duration: Gradual Onset Severity Initially: Severe Severity Currently: Severe Pain Intensity: 10 Pain Scale Used: 0-10 Numeric Allergies/Adverse Reactions: Allergies Allergy/AdvReac Type Severity Reaction Status Date / Time codeine Allergy Difficulty Verified 02/18/18 22:22 Breathing morphine Allergy Difficulty Verified 02/18/18 22:22 Breathing Penicillins Allergy Rash Verified 02/18/18 22:22 PMH/Surg Hx/FS Hx/Imm Hx - Additional Past Medical History Additional PMH: IBS Cardiovascular History: Hypertension GI/ History: Gastroesophageal Reflux Psychological History: Anxiety - Surgical History Surgical History: Yes Surgery Procedure, Year, and Place: josiah- 02/2000. tubal ligation 07/2003. teeth removed - Family History Known Family History: Positive: Hypertension, Diabetes - father - Social History Lives: With Family Alcohol Use: Rare Substance Use Type: None Smoking Status (MU): Heavy Every Day Tobacco Smoker Type: Cigarettes Amount Used/How Often: 1/2 ppd Household Exposure Type: Cigarettes Review of Systems Constitutional: Negative Skin: Negative Respiratory: Negative Cardiovascular: Negative Gastrointestinal: Abdominal Pain, Vomiting, Diarrhea Genitourinary: Negative Neurovascular: Negative Neurological: Negative Psychological: Negative All Other Systems Reviewed And Are Negative: Yes Physical Exam - Summary Physical Exam Summary: GENERAL: NAD. Obese SKIN: No rashes, sores, lesions, or open wounds. NECK: Supple. Nontender. No lymphadenopathy. CHEST: CTAB. No r/r/w. No accessory muscle use. Breathing comfortably and in no distress. CV: RRR. Without m/r/g. Pulses intact. Brisk cap refill. ABDOMEN: Moderate generalized TTP. Soft. No distention or guarding. No CVA tenderness. Bowel sounds present NEURO: Alert. CN II-XII grossly intact. PSYCH: Age appropriate behavior. Triage Information Reviewed: Yes Vital Signs: Initial Vital Signs Temp 97.8 F 02/18/18 21:38 Pulse 84 02/18/18 21:38 Resp 18 02/18/18 21:38 BP 136/75 02/18/18 21:38 Pulse Ox 97 02/18/18 21:38 Vital Signs Reviewed: Yes Abd Pain Female Course/Dx - Course Course Of Treatment: Abdominal pain for 3 days with new onset vomiting and diarrhea. Hx of cholesectomy. Suspicious for obstruction vs viral gastroenteritis vs colitis. I have advised pt to be further evaluated in the ED. Declined ambulance - pt's friend with her will drive her. - Differential Dx/Diagnosis Provider Diagnoses: Abdominal pain. Vomiting. Diarrhea Discharge - Sign-Out/Discharge Documenting (check all that apply): Patient Departure - Discharge Plan Condition: Stable Disposition: HOME Referrals: Jackie Marcos PA [Primary Care Provider] - Additional Instructions: Please go to the ER for further evaluation of your abdominal pain - Billing Disposition and Condition Condition: STABLE Disposition: Home
== END 2018-02-18 21:54 | disposition home or self-care (01) ==
LOC: UCEAST 21:29
DX: R10.84 Generalized abdominal pain (principal); R11.10 Vomiting, unspecified; R19.7 Diarrhea, unspecified; Z88.0 Allergy status to penicillin; Z88.5 Allergy status to narcotic agent; F17.210 Nicotine dependence, cigarettes, uncomplicated
CPT/HCPCS: 99212; G0463

== ENCOUNTER 2018-02-18 22:15 | Emergency (ER) | payer OTHER ==
[2018-02-18] MEDS ORDERED: Lidocaine 2% VISCOUS* 15 ML UDC PO ONE (22:43)
[2018-02-18] MEDS ORDERED: NS 0.9% 1000 ML* 2,000 ML IV ONE (22:43)
[2018-02-18] MEDS ORDERED: Al Hydrox/Mg Hydrox/Simet LIQ* 30 ML UDC PO ONE (22:43)
[2018-02-18] MEDS ORDERED: Ondansetron ODT TAB* 4 MG PO ONE (22:43)
--- NOTE | 2018-02-18 23:16 | ED ---
Abdominal Pain/Female - HPI Summary HPI Summary: This is yasmine Gan documenting for attending Dr. Ramses Chaudhary MD. The patient is a 37 y/o F presenting to [facility] from [facility] c/o nausea, vomiting, diarrhea, and diffuse abd pain starting three days ago. The pain is described as an intermittent cramping pain with a "tightening and release" and is rated 10 /10 in severity. She has a hx of IBS, with similar symptoms of diarrhea and abd pain, but not vomiting. Her symptoms also only last for a day instead of three days such as in her current state. She has not been able to keep any food or her IBS medication down. She additionally c/o back pain. She denies fever, hematochezia, and vaginal discharge. She has hx of anxiety, depression, and HTN , which are all controlled by medications. She had a cholescystectomy. She is a daily smoker of cigarettes and marijuana. LNMP: 02/05/18. - History of Current Complaint Chief Complaint: EDAbdPain Stated Complaint: ABD PAIN/GENERAL Time Seen by Provider: 02/18/18 22:30 Hx Obtained From: Patient Hx Last Menstrual Period: 04/17/17 Onset/Duration: Sudden Onset, Lasting Days, Still Present Timing: Constant Severity Initially: Severe Severity Currently: Severe Pain Intensity: 10 Pain Scale Used: 0-10 Numeric Location: Diffuse Radiates: No Character: Cramping Aggravating Factor(s): Food Alleviating Factor(s): Nothing Associated Signs and Symptoms: Positive: Back Pain, Decreased Appetite, Nausea, Vomiting, Diarrhea. Negative: Fever, Blood in Stool, Vaginal Discharge Allergies/Adverse Reactions: Allergies Allergy/AdvReac Type Severity Reaction Status Date / Time codeine Allergy Difficulty Verified 02/18/18 22:22 Breathing morphine Allergy Difficulty Verified 02/18/18 22:22 Breathing Penicillins Allergy Rash Verified 02/18/18 22:22 PMH/Surg Hx/FS Hx/Imm Hx Endocrine/Hematology History: Denies: Hx Diabetes, Hx Thyroid Disease Cardiovascular History: Reports: Hx Hypertension Respiratory History: Reports: Hx Sleep Apnea - evaluation for 10/2013 Denies: Hx Asthma, Hx Chronic Obstructive Pulmonary Disease (COPD) GI History: Reports: Hx Gastroesophageal Reflux Disease - meds, Hx Irritable Bowel Denies: Hx Ulcer Musculoskeletal History: Reports: Hx Back Problems - low back pain, Hx Orthopedic Injury - (right) shoulder pain w/lifting arm, Other Musculoskeletal History - (right) lower leg w/rash & itching - Surgical History Surgery Procedure, Year, and Place: josiah- 02/2000. tubal ligation 07/2003. teeth removed - Immunization History Date of Tetanus Vaccine: unk Date of Influenza Vaccine: none Infectious Disease History: No Infectious Disease History: Denies: Hx Clostridium Difficile, Hx Hepatitis, Hx Human Immunodeficiency Virus (HIV), Hx of Known/Suspected MRSA, Hx Shingles, Hx Tuberculosis, Hx Known/ Suspected VRE, Hx Known/Suspected VRSA, History Other Infectious Disease, Traveled Outside the [place] in Last 30 Days - Family History Known Family History: Positive: Hypertension, Diabetes - father - Social History Alcohol Use: Rare Substance Use Type: Reports: None Smoking Status (MU): Heavy Every Day Tobacco Smoker Type: Cigarettes Amount Used/How Often: 1/2 ppd Review of Systems Negative: Fever Gastrointestinal: Negative - hematochezia Positive: Abdominal Pain, Vomiting, Diarrhea, Nausea, Other - loss of appetite Negative: discharge Positive: Other - back pain All Other Systems Reviewed And Are Negative: Yes Physical Exam - Summary Physical Exam Summary: Appearance: Well-appearing, Obese, lying in bed comfortably Skin: Warm, dry, no obvious rash Eyes: sclera anicteric, no conjunctival pallor ENT: mucous membranes moist, pharynx appears normal Neck: Supple, nontender Respiratory: Clear to auscultation, no signs of respiratory distress Cardiovascular: Normal S1, S2. No murmurs. Normal distal pulses in tibial and radial bilaterally. Abdomen: Soft, nontender, normal active bowel sounds present Musculoskeletal: Normal, Strength/ROM Intact Neurological: A&Ox3, awake and alert, mentation is normal, speech is fluent and appropriate Psychiatric: affect is normal, does not appear anxious or depressed Triage Information Reviewed: Yes Vital Signs On Initial Exam: Initial Vitals Temp Pulse Resp BP Pulse Ox 98 F 81 16 121/62 97 02/18/18 22:22 02/18/18 22:22 02/18/18 22:22 02/18/18 22:22 02/18/18 22:22 Vital Signs Reviewed: Yes Diagnostics - Vital Signs Vital Signs Temp Pulse Resp BP Pulse Ox 02/18/18 22:22 98 F 81 16 121/62 97 - Laboratory Result Diagrams: 02/19/18 01:04 02/19/18 01:04 Lab Statement: Any lab studies that have been ordered have been reviewed, and results considered in the medical decision making process. Discharge - Sign-Out/Discharge Documenting (check all that apply): Patient Departure - Pt will be discharged home. - Discharge Plan Condition: Good Disposition: HOME Prescriptions: Dicyclomine CAP* [Bentyl CAP*] 20 mg PO TID PRN #15 cap PRN Reason: Pain - Abdominal Ondansetron [Zofran Odt] 8 mg PO Q6HR PRN #12 tab PRN Reason: Nausea Patient Education Materials: Gastroenteritis (ED) Forms: *Work Release Referrals: Jackie Marcos PA [Primary Care Provider] - - Billing Disposition and Condition Condition: GOOD Disposition: Home
[2018-02-19 01:37] LABS: EGFR Non-African American 105.2 (>60)
[2018-02-19 02:13] LABS: Hematocrit 36 % (35-47); Hemoglobin 11.2 g/dl (12.0-16.0); Mean Corpuscular HGB Conc 31 g/dl (31-36); Mean Corpuscular Hemoglobin 23 pg (27-31); Mean Corpuscular Volume 73 fL (80-97); Mean Platelet Volume 8.2 um3 (7.4-10.4); Platelet Count 325 10^3/ul (150-450); Red Blood Count 4.96 10^6/ul (4.00-5.40); Red Cell Distribution Width 18 % (10.5-15); White Blood Count 13.4 10^3/ul (3.5-10.8)
[2018-02-19 02:14] LABS: ABS Basophils 0.1 10^3/ul (0-0.2); ABS Eosinophils 0.2 10^3/ul (0-0.6); ABS Lymphocytes 2.5 10^3/ul (1.0-4.8); ABS Monocytes 0.8 10^3/ul (0-0.8); ABS Neutrophils 9.8 10^3/ul (1.5-7.7); ABS Nucleated RBC 0 10^3/ul; Eosinophil % 1.5 % (0-6); Nucleated Red Blood Cells % 0.1
[2018-02-19] MEDS ORDERED: Dicyclomine CAP* 10 MG PO ONE (02:16)
[2018-02-19 03:09] VITALS: BP 115/53
[2018-02-19 03:19] LABS: Urine Appearance Cloudy; Urine Blood Negative (Negative); Urine Color Yellow; Urine Ketones 1+ (Negative); Urine Protein Negative (Negative); Urine Red Blood Cell 1+(3-5/hpf) (Absent); Urine Specific Gravity 1.023 (1.010-1.030); Urine Urobilinogen Negative (Negative); Urine White Blood Cell Trace(0-5/hpf) (Absent)
== END 2018-02-19 03:07 | disposition home or self-care (01) ==
LOC: ED 22:50
DX: K52.9 Noninfective gastroenteritis and colitis, unspecified (principal); R11.2 Nausea with vomiting, unspecified; R19.7 Diarrhea, unspecified; M54.9 Dorsalgia, unspecified; F17.210 Nicotine dependence, cigarettes, uncomplicated
CPT/HCPCS: 36415; 80053; 81003; 81015; 83690; 85025; 87086; 96360; 99283; A9270-GY